=== PATIENT | male | born 1950 | race Caucasian/White ===

== ENCOUNTER 2017-01-15 12:11 | Day surgery (SDC) | payer MEDICARE, BC ==
[2015-03-02 12:15] VITALS: O2SAT 94
[2017-01-15] MEDS ORDERED: TRIAMCINOLONE ACETONIDE 40 MG/ML SUS ONE (12:34)
[2017-01-15 13:02] VITALS: BP 144/79; PULSE 74; RESP 20; TEMP 97.4
== END 2017-01-15 13:26 | disposition home or self-care (01) | DRG 552 ==
LOC: SURG 12:11
PROVIDERS: ATTEND Nurse Anesthetist, Certified Registered
DX: M54.5 Low back pain (principal); E11.9 Type 2 diabetes mellitus without complications
CPT/HCPCS: 82962; J3300

== ENCOUNTER 2017-02-19 11:49 | Day surgery (SDC) | payer MEDICARE, BC ==
[2017-02-19 12:17] VITALS: RESP 14
[2017-02-19] MEDS ORDERED: BUPIVACAINE HCL 0.5% MPF 10 ML SOL ONE (12:59)
[2017-02-19] MEDS ORDERED: TRIAMCINOLONE ACETONIDE 40 MG/ML SUS ONE (12:59)
[2017-02-19] MEDS ORDERED: LIDOCAINE HCL 1% MPF SOL ONE (13:00)
[2017-02-19 13:39] VITALS: BP 144/86; PULSE 75; TEMP 97.4; O2SAT 95
== END 2017-02-19 13:51 | disposition home or self-care (01) | DRG 554 ==
LOC: SURG 11:49
PROVIDERS: ATTEND Nurse Anesthetist, Certified Registered
DX: M12.88 Other specific arthropathies, not elsewhere classified, other specified site (principal)
CPT/HCPCS: J2001; J3300

== ENCOUNTER 2017-04-16 12:26 | Day surgery (SDC) | payer MEDICARE, BC ==
[2017-04-16 13:33] VITALS: RESP 16
[2017-04-16] MEDS: TRIAMCINOLONE ACETONIDE 40 MG/ML SUS ONE ×2 (14:07→14:10)
[2017-04-16 14:41] VITALS: BP 136/85; PULSE 70; TEMP 99.5; O2SAT 95
== END 2017-04-16 14:47 | disposition home or self-care (01) | DRG 552 ==
LOC: SURG 12:26
PROVIDERS: ATTEND Nurse Anesthetist, Certified Registered
DX: M48.06 Spinal stenosis, lumbar region (principal)
CPT/HCPCS: J3300

== ENCOUNTER 2017-08-11 14:23 | Emergency (ER) | payer MEDICARE, BC ==
[2017-08-11 14:52] VITALS: RESP 20; TEMP 96.1
[2017-08-11] MEDS ORDERED: PREDNISONE 20 MG TAB PO ONE (15:15)
[2017-08-11] MEDS ORDERED: KETOROLAC TROMETHAMINE 30 MG/ML SOL IM ONE (15:15)
[2017-08-11] MEDS ORDERED: KETOROLAC TROMETHAMINE 30 MG/ML SOL ONE (15:19)
[2017-08-11] MEDS ORDERED: PREDNISONE 20 MG TAB ONE (15:19)
[2017-08-11 15:46] VITALS: BP 160/98; PULSE 66; O2SAT 100
== END 2017-08-11 16:55 | disposition home or self-care (01) | DRG 552 ==
LOC: ED 14:23
DX: M54.2 Cervicalgia (principal); M62.838 Other muscle spasm
CPT/HCPCS: 72040; 96372; 99283; 99284; J1885

== ENCOUNTER 2017-10-27 16:19 | Emergency (ER) | payer MEDICARE, BC ==
[2017-10-27 16:26] VITALS: TEMP 97
[2017-10-27] MEDS ORDERED: ALBUTEROL/IPRATROPIUM 1 VIAL SOL INH ONE (16:39)
[2017-10-27] MEDS ORDERED: ALBUTEROL/IPRATROPIUM 1 VIAL SOL ONE (16:40)
[2017-10-27 16:53] VITALS: RESP 20
[2017-10-27] MEDS ORDERED: LORAZEPAM 2 MG/ML SOL IM ONE (17:06)
[2017-10-27] MEDS ORDERED: LORAZEPAM 2 MG/ML SOL ONE (17:14)
[2017-10-27 18:16] VITALS: BP 141/93; PULSE 85; O2SAT 96
== END 2017-10-27 17:58 | disposition home or self-care (01) | DRG 880 ==
LOC: ED 16:19
DX: F41.9 Anxiety disorder, unspecified (principal); E11.9 Type 2 diabetes mellitus without complications; R05 Cough; R06.02 Shortness of breath; F40.240 Claustrophobia
CPT/HCPCS: 71045; 87430; 87804; 96372; 99283; 99284; J2060

== ENCOUNTER 2018-01-08 11:52 | Day surgery (SDC) | payer MEDICARE, BC ==
[2018-01-08] MEDS ORDERED: BUPIVACAINE HCL 0.25% MPF 10 ML SOL INFIL ONE (13:13)
[2018-01-08 13:24] VITALS: RESP 16
[2018-01-08] MEDS ORDERED: LIDOCAINE HCL 1% MPF SOL ONE (13:28)
[2018-01-08] MEDS: DEXAMETHASONE SOD PHOS PF 10 MG/ML SOL IJ ONE ×2 (13:38→13:43)
[2018-01-08 14:05] VITALS: BP 152/81; PULSE 68; TEMP 98.9; O2SAT 96
== END 2018-01-08 14:10 | disposition home or self-care (01) | DRG 552 ==
LOC: SURG 11:52
PROVIDERS: ATTEND Nurse Anesthetist, Certified Registered
DX: M48.062 Spinal stenosis, lumbar region with neurogenic claudication (principal)
CPT/HCPCS: J1100; J2001

== ENCOUNTER 2018-04-30 09:40 | Day surgery (SDC) | payer MEDICARE, BC ==
[~2018-04-30 09:40] MED LIST: LIDOCAINE HCL 1% MPF 30 SOL ONE; PROPOFOL 500 MG/50 ML EMU IV ONE
[2018-04-30 11:16] VITALS: O2SAT 95
[2018-04-30 12:14] VITALS: BP 115/78; PULSE 52; RESP 20; TEMP 97.7
== END 2018-04-30 12:00 | disposition home or self-care (01) | DRG 951 ==
LOC: SURG 09:40
PROVIDERS: ATTEND Surgery
DX: Z12.11 Encounter for screening for malignant neoplasm of colon (principal); E11.9 Type 2 diabetes mellitus without complications; D37.4 Neoplasm of uncertain behavior of colon; K62.1 Rectal polyp
CPT/HCPCS: J2001; J2704

== ENCOUNTER 2018-07-08 09:02 | Day surgery (SDC) | payer MEDICARE, BC ==
[2018-07-08] MEDS ORDERED: BUPIVACAINE HCL 0.25% MPF 30 ML SOL INFIL ONE (10:39)
[2018-07-08] MEDS ORDERED: LIDOCAINE HCL 1% MPF 30 SOL ONE (10:53)
[2018-07-08] MEDS: DEXAMETHASONE SOD PHOS PF 10 MG/ML SOL IJ ONE ×2 (10:57→11:07)
[2018-07-08] MEDS: TRIAMCINOLONE ACETONIDE 40 MG/ML SUS ONE ×2 (11:08→11:19)
[2018-07-08 11:15] VITALS: O2SAT 96
[2018-07-08 11:39] VITALS: BP 163/90; PULSE 52; RESP 18; TEMP 97.4
== END 2018-07-08 12:03 | disposition home or self-care (01) | DRG 552 ==
LOC: SURG 09:02
PROVIDERS: ATTEND Nurse Anesthetist, Certified Registered
DX: M51.17 Intervertebral disc disorders with radiculopathy, lumbosacral region (principal); R07.89 Other chest pain; E11.9 Type 2 diabetes mellitus without complications
CPT/HCPCS: 82962; J1100; J2001; J3300

== ENCOUNTER 2018-08-27 10:10 | Day surgery (SDC) | payer BC, MEDICAID, MEDICARE, OTHER ==
[2018-08-27] MEDS ORDERED: BUPIVACAINE HCL 0.5% MPF 10 ML SOL ONE (10:31)
[2018-08-27 11:05] VITALS: RESP 14
[2018-08-27 11:16] VITALS: BP 130/88; PULSE 78; TEMP 97.2; O2SAT 93
== END 2018-08-27 11:31 | disposition home or self-care (01) | DRG 554 ==
LOC: SURG 10:10
PROVIDERS: ATTEND Nurse Anesthetist, Certified Registered
DX: M12.88 Other specific arthropathies, not elsewhere classified, other specified site (principal); E11.9 Type 2 diabetes mellitus without complications

== ENCOUNTER 2018-09-17 12:34 | Day surgery (SDC) | payer OTHER ==
[2018-09-17] MEDS ORDERED: LIDOCAINE HCL 2% MPF 10 ML SOL ONE (13:05)
[2018-09-17] MEDS ORDERED: LIDOCAINE HCL 1% MPF 30 SOL ONE (13:05)
[2018-09-17] MEDS ORDERED: MIDAZOLAM 2 MG/2 ML SOL ONE (13:09)
[2018-09-17] MEDS ORDERED: FENTANYL 100MCG/2ML SOL ONE (13:09)
[2018-09-17 13:58] VITALS: BP 145/82; PULSE 54; RESP 18; TEMP 97.4; O2SAT 92
== END 2018-09-17 14:15 | disposition home or self-care (01) | DRG 554 ==
LOC: SURG 12:34
PROVIDERS: ATTEND Nurse Anesthetist, Certified Registered
DX: M12.88 Other specific arthropathies, not elsewhere classified, other specified site (principal); E11.9 Type 2 diabetes mellitus without complications
CPT/HCPCS: J2250; J3010; J2001

== ENCOUNTER 2018-11-11 13:19 | Day surgery (SDC) | payer OTHER ==
[2018-11-11 13:52] VITALS: RESP 16
[2018-11-11] MEDS ORDERED: BUPIVACAINE HCL 0.25% MPF 30 ML SOL INFIL ONE (14:09)
[2018-11-11] MEDS ORDERED: DEXAMETHASONE SOD PHOS PF 10 MG/ML SOL IJ ONE (14:09)
[2018-11-11 14:44] VITALS: BP 154/80; PULSE 55; TEMP 98.6; O2SAT 97
== END 2018-11-11 14:59 | disposition home or self-care (01) | DRG 552 ==
LOC: SURG 13:19
PROVIDERS: ATTEND Nurse Anesthetist, Certified Registered
DX: M51.17 Intervertebral disc disorders with radiculopathy, lumbosacral region (principal); M48.062 Spinal stenosis, lumbar region with neurogenic claudication; E11.9 Type 2 diabetes mellitus without complications
CPT/HCPCS: J1100

== ENCOUNTER 2018-11-20 13:37 | Outpatient (CLI) | payer OTHER ==
[2018-11-11 14:44] VITALS: O2SAT 97
== END 2018-11-20 13:38 | disposition home or self-care (01) | DRG 558 ==
LOC: CONVCARE 13:37
PROVIDERS: ATTEND Orthopaedic Surgery
DX: M75.42 Impingement syndrome of left shoulder (principal)
CPT/HCPCS: 73030

== ENCOUNTER 2019-02-10 09:03 | Day surgery (SDC) | payer OTHER ==
[2019-02-10 09:28] VITALS: RESP 16; TEMP 97.7
[2019-02-10] MEDS ORDERED: BUPIVACAINE HCL 0.25% MPF 30 ML SOL INFIL ONE (09:48)
[2019-02-10] MEDS: DEXAMETHASONE SOD PHOS PF 10 MG/ML SOL IJ ONE ×3 (10:05→10:20)
[2019-02-10 10:33] VITALS: PULSE 74; O2SAT 94
[2019-02-10 10:38] VITALS: BP 132/82
== END 2019-02-10 10:49 | disposition home or self-care (01) | DRG 552 ==
LOC: SURG 09:03
PROVIDERS: ATTEND Nurse Anesthetist, Certified Registered
DX: M99.53 Intervertebral disc stenosis of neural canal of lumbar region (principal); E11.9 Type 2 diabetes mellitus without complications
CPT/HCPCS: 82962; J1100

== ENCOUNTER 2019-03-18 10:26 | Day surgery (SDC) | payer OTHER ==
[2019-03-18] MEDS ORDERED: DIAZEPAM 5 MG TAB ONE (10:43)
[2019-03-18] MEDS ORDERED: BUPIVACAINE HCL 0.25% MPF 30 ML SOL INFIL ONE (10:54)
[2019-03-18 10:58] VITALS: RESP 16
[2019-03-18] MEDS: DEXAMETHASONE SOD PHOS PF 10 MG/ML SOL IJ ONE ×3 (11:17→11:24)
[2019-03-18 11:44] VITALS: BP 142/87; PULSE 75; TEMP 98; O2SAT 95
== END 2019-03-18 11:54 | disposition home or self-care (01) | DRG 552 ==
LOC: SURG 10:26
PROVIDERS: ATTEND Nurse Anesthetist, Certified Registered
DX: M48.061 Spinal stenosis, lumbar region without neurogenic claudication (principal); M54.14 Radiculopathy, thoracic region; E11.9 Type 2 diabetes mellitus without complications
CPT/HCPCS: A9270-GY; J1100

== ENCOUNTER 2019-04-28 12:32 | Day surgery (SDC) | payer OTHER ==
[2019-04-28 13:02] VITALS: TEMP 97.6
[2019-04-28] MEDS ORDERED: BUPIVACAINE HCL 0.25% MPF 30 ML SOL INFIL ONE (13:09)
[2019-04-28] MEDS: TRIAMCINOLONE ACETONIDE 40 MG/ML SUS ONE ×2 (13:22→13:34)
[2019-04-28 13:35] VITALS: O2SAT 97
[2019-04-28 13:45] VITALS: RESP 20
[2019-04-28 13:54] VITALS: BP 141/85; PULSE 75
== END 2019-04-28 14:00 | disposition home or self-care (01) | DRG 74 ==
LOC: SURG 12:32
PROVIDERS: ATTEND Nurse Anesthetist, Certified Registered
DX: G58.9 Mononeuropathy, unspecified (principal); E11.9 Type 2 diabetes mellitus without complications
CPT/HCPCS: 93005; J3300